=== PATIENT | male | born 1995 | race Hispanic/Latino ===

== ENCOUNTER 2016-05-22 12:37 | Emergency (ER) | payer SELFPAY ==
[2016-05-22] MEDS ORDERED: AMOXicillin 250 MG CAP ONE ×2 (12:49→12:52)
[2016-05-22] MEDS ORDERED: HYDROcodone/Acetaminophen 10/325 mg Tablet ONE (12:49)
--- NOTE | 2016-05-22 13:17 | ERRECORD ---
[facility] EMERGENCY RECORD HPI TOOTHACHE (12:48 WMEI) CHIEF COMPLAINT: Patient presents for evaluation of toothache, Patient presents for evaluation of jaw swelling. HISTORIAN: History provided by patient. LOCATION: Symptoms are localized, most severe to r upper molar. QUALITY: Pain is dull in nature, described as aching. TIME COURSE: Gradual onset of symptoms, 2, days priror to arrival. ASSOCIATED WITH: Associated with chills, Associated with facial pain, Associated with facial swelling, for 2 days, constant, No associated fever. EXACERBATED BY: Patient's condition exacerbated by movement. RELIEVED BY: Patient's condition relieved by nothing. ROS (12:49 WMEI) CONSTITUTIONAL: Historian reports chills, denies fever, reports malaise. EYES: Historian denies eye pain, denies eye discharge. ENT: Historian denies otalgia, denies rhinorrhea, denies sinus pain. CARDIOVASCULAR: Historian denies chest pain, no radiation. RESPIRATORY: Historian denies cough, denies shortness of breath. GI: Historian denies nausea, denies vomiting. MUSCULOSKELETAL: Historian denies arthralgias, denies joint stiffness. SKIN: Historian denies skin changes, denies skin lesions. NEUROLOGIC: Historian denies focal weakness, denies headache, denies mental status changes. PSYCHIATRIC: Historian denies alcohol abuse, denies anxiety, denies depression, reports drug abuse, reports marijuana abuse. PAST MEDICAL HISTORY (12:44 KMOR) MEDICAL HISTORY: No past medical history. MALE SURGICAL HISTORY: Patient has no surgical history. PSYCHIATRIC HISTORY: No previous psychiatric history, no previous inpatient psychiatric admissions, no previous emergency department psychiatric evaluations. SOCIAL HISTORY: Patient denies alcohol use, Patient currently uses drugs, abuses marijuana, Patient currently uses tobacco, smokes cigarettes, 4-5 cigs. KNOWN ALLERGIES NKDA (Unconfirmed) No Known Drug Allergies CURRENT MEDICATIONS (12:46 KMOR) None &a-1R&a+25V*p+0X*k2183M*c202B*c15G*c2P*p-0X&a-25V&a+1R Name: WillamLucas Stefan : 1995 M21 MedRec: [id number] AcctNum: [id number] Prepared: Zoila May 23, 2016 06:09 by Interface Page 1 of 3 pMD [facility] EMERGENCY RECORD VITAL SIGNS (12:41 KMOR) VITAL SIGNS: BP: 158/118, Pulse: 80, Resp: 16, Temp: 97.4 (Oral), Pain: 10, O2 sat: 98 on Room Air, Time: 05/22/2016 12:41. PHYSICAL EXAM (12:50 WMEI) CONSTITUTIONAL: Vital signs reviewed, Patient appears non toxic, Patient alert and oriented to person, place and time. HEAD: Head exam included findings of head atraumatic, normocephalic. EYES: Conjunctiva normal, Sclera normal. ENT: Ear exam normal, Nose exam normal, Pharynx exam normal, Teeth with, dental caries, cavitous tender r 1st molar swelling r side of face no obvious gum line abscess. NECK: Neck exam included findings of normal range of motion. RESPIRATORY CHEST: Breath sounds clear, Chest exam included findings of chest movement symmetrical. ABDOMEN MALE: Abdominal exam included findings of abdomen nontender. UPPER EXTREMITY: Upper extremity exam included findings of inspection normal, Range of motion normal, Motor strength normal. LOWER EXTREMITY: Lower extremity exam included findings of inspection normal, Range of motion normal, Motor strength normal. NEURO: Fitz coma scale 15, Neuro exam findings include patient oriented to person, place and time, Speech normal, Gait normal. SKIN: Skin exam included findings of skin warm, dry, and normal in color. LYMPHATIC: Lymphatic exam normal. PSYCHIATRIC: Psychiatric exam included findings of patient oriented to person place and time, Normal affect, Judgment normal, Insight normal. MEDICATION ADMINISTRATION SUMMARY Drug Name: amoxicillin, Dose Ordered: 1000 mg, Route: Oral, Status: Given, Time: 12:53 05/22/2016, Drug Name: [place], Dose Ordered: 10 mg, Route: Oral, Status: Given, Time: 12:53 05/22/2016, Detailed record available in Medication Service section. PROBLEM LIST No recorded problems DIAGNOSIS (12:52 WMEI) FINAL: PRIMARY: dental pain. PRESCRIPTION acetaminophen-codeine: TABLET : 300 mg-30 mg : ORAL : Quantity: 1-2 Unit: tab(s) Route: ORAL Schedule: every 4 hours prn Dispense: 20 Unit: tab(s) May substitute. Refills: No Refills . (12:53 WMEI) &a-1R&a+25V*p+0X*n8988A*c202B*c15G*c2P*p-0X&a-25V&a+1R Name: WillamLucas : 1995 M21 MedRec: [id number] AcctNum: [id number] Prepared: Zoila May 23, 2016 06:09 by Interface Page 2 of 3 pMD [facility] EMERGENCY RECORD NOTES: No refills. (12:53 WMEI) PC Pen V K: TABLET : 500 mg : ORAL : Quantity: 1 Unit: tab(s) Route: ORAL Schedule: 4 times a day Dispense: 28 Unit: tab(s) May substitute. Refills: No Refills . (12:53 WMEI) NOTES: ^s=No refills No refills. (12:53 WMEI) Tamiflu: CAPSULE : 75 mg : ORAL : Quantity: 1 Unit: cap(s) Route: ORAL Schedule: 2 times a day (before meals) Dispense: 10 Unit: tab(s) May substitute. Refills: No Refills . (12:56 WMEI) NOTES: No refills. (12:56 WMEI) Tessalon: CAPSULE : 200 mg : ORAL : Quantity: 1 Unit: tab(s) Route: ORAL Schedule: every 8 hours PRN Dispense: 21 Unit: tab(s) May substitute. Refills: No Refills . (12:56 WMEI) NOTES: ^s=No refills No refills. (12:56 WMEI) DISPOSITION PATIENT: Disposition Type: Discharge, Disposition: *Discharge Home. (12:52 WMEI) Patient left the department. (13:00 KMOR) [place]: KMOR=ROB Deras, Char WMEI=DO Jimenez William &a-1R&a+25V*p+0X*n9400W*c202B*c15G*c2P*p-0X&a-25V&a+1R Name: Lucas Quarles : 1995 M21 MedRec: [id number] AcctNum: [id number] Prepared: Zoila May 23, 2016 06:09 by Interface Page 3 of 3 pMD MTDD
--- NOTE | 2016-05-22 13:19 | PICIS ---
[facility] EMERGENCY RECORD TRIAGE (12:41 KMOR) TRIAGE NOTES: Right sided facial swelling x 2 days. (12:41 KMOR) PATIENT: NAME: Lucas Quarles, AGE: 21, GENDER: male, : Tue1995, TIME OF GREET: Sat May 22, 2016 12:37, PREFERRED LANGUAGE: Urdu, ETHNICITY: or , ECODE BILLING MAP: [facility], SSN: [id number], Zip Code: [address], KG WEIGHT: 83.91, PHONE: , , , PERSON ID: [id number], PAYMENT: SJX Self Pay, PCP: NONE. (12:41 KMOR) COMPLAINT: Facial swelling. (12:41 KMOR) ADMISSION: URGENCY: 3 Urgent, ADMISSION SOURCE: Home, TRANSPORT: CAR, BED: ER -03. (12:41 KMOR) ASSESSMENT: Assessment: A&XO4. RR EVEN AND UNLABORED., Symptoms began 2 days ago. (12:44 KMOR) PAIN: Patient complains of pain described as, aching, on a scale 0-10 patient rates pain as 10, Location RIGHT SIDE OF FACE. (12:44 KMOR) IMMUNIZATIONS: Flu vaccine not up to date, Tetanus not up to date. (12:44 KMOR) SIRS SCORING: Heart Rate 55-109 (0), Temp range 96.8-101.1 (0), respiratory rate 12-24 (0), Mental Status altered: no (0), Total SIRS Score 0, Yes, Infection or Suspected Infection. (12:44 KMOR) TRIAGE SCREENING: Patient denies suicidal ideation, Patient denies presence of domestic violence. (12:44 KMOR) TREATMENTS IN PROGRESS: Treatments given Prehospital: 4 advil in the AM. (12:44 KMOR) PROVIDERS: TRIAGE NURSE: Char Deras RN. (12:41 KMOR) PREVIOUS VISIT ALLERGIES: NKDA. (12:41 KMOR) NKDA. (12:44 KMOR) KNOWN ALLERGIES NKDA (Unconfirmed) No Known Drug Allergies CURRENT MEDICATIONS (12:46 KMOR) None VITAL SIGNS (12:41 KMOR) VITAL SIGNS: BP: 158/118, Pulse: 80, Resp: 16, Temp: 97.4 (Oral), Pain: 10, O2 sat: 98 on Room Air, Time: 05/22/2016 12:41. NURSING ASSESSMENT: DENTAL (12:46 KMOR) CONSTITUTIONAL: Patient arrives ambulatory, Gait steady, History obtained from patient, Patient appears, uncomfortable, Patient cooperative, Patient alert, Oriented to person, place and time, Skin warm, Skin dry, Skin normal in color, Mucous membranes pink, Mucous membranes moist, Patient is well-groomed, Patient complains of Right side facial swelling, Right side facial &a-1R&a+25V*p+0X*x4827M*c202B*c15G*c2P*p-0X&a-25V&a+1R Name: Lucas Quarles : 1995 M21 MedRec: [id number] AcctNum: [id number] Prepared: Zoila May 23, 2016 06:15 by Interface Page [address] [facility] EMERGENCY RECORD swelling and dental pain x2 days, broken tooth on right upper back. PAIN: aching pain, to right upper back tooth (teeth), to the right upper jaw, on a scale 0-10 patient rates pain as 10. DENTAL: Teeth abnormal:, broken secondary tooth (teeth), signs of infection to secondary tooth (teeth), no associated malocclusion of jaw, no associated bleeding, Associated with, swelling to the right side of face, no swelling to the eyes, no swelling to the neck, swelling to the right jaw. NOTES: Patient tolerated procedure well. NURSING PROCEDURE: DISCHARGE NOTE (12:59 KMOR) DISCHARGE: Patient discharged to home, ambulating without assistance, family driving, accompanied by //partner, Summary of Care printed/ provided, Transition record given to patient, Discharge instructions given to patient, Simple or moderate discharge teaching performed, by ROB Pardo, Discharge instructions and follow up reviewed with patient. Pt ambulatory to discharge desk., Prescriptions given and instructions on side effects given, Name of prescription(s) given: tylenol 3, pcn, Above person(s) verbalized understanding of discharge instructions and follow-up care, Patient instructed not to drive home. BELONGINGS: Belongings remain with patient, Valuables remain with patient. MEDICATION ADMINISTRATION SUMMARY Drug Name: amoxicillin, Dose Ordered: 1000 mg, Route: Oral, Status: Given, Time: 12:53 05/22/2016, Drug Name: [place], Dose Ordered: 10 mg, Route: Oral, Status: Given, Time: 12:53 05/22/2016, Detailed record available in Medication Service section. MEDICATION SERVICE (12:53 WMEI) amoxicillin: Order: amoxicillin (amoxicillin trihydrate) - Dose: 1000 mg : Oral Schedule: Now Ordered by: Shen Jimenez DO Entered by: Shen Jimenez DO Sat May 22, 2016 12:47 , Acknowledged by: Char Deras RN Sat May 22, 2016 12:48 Documented as given by: Char Deras RN Sat May 22, 2016 12:53 Patient, Medication, Dose, Route and Time verified prior to administration. Amount given: 1000mg, Site: Medication administered P.O., Correct patient, time, route, dose and medication confirmed prior to administration, Patient advised of actions and side-effects prior to administration, Allergies confirmed and medications reviewed prior to administration, Patient in position of comfort, Side rails up, Cart &a-1R&a+25V*p+0X*h1164A*c202B*c15G*c2P*p-0X&a-25V&a+1R Name: Lucas Quarles : 1995 M21 MedRec: [id number] AcctNum: [id number] Prepared: Zoila May 23, 2016 06:15 by Interface Page [address] [facility] EMERGENCY RECORD in lowest position, Family at bedside. HPI TOOTHACHE (12:48 WMEI) CHIEF COMPLAINT: Patient presents for evaluation of toothache, Patient presents for evaluation of jaw swelling. HISTORIAN: History provided by patient. LOCATION: Symptoms are localized, most severe to r upper molar. QUALITY: Pain is dull in nature, described as aching. TIME COURSE: Gradual onset of symptoms, 2, days priror to arrival. ASSOCIATED WITH: Associated with chills, Associated with facial pain, Associated with facial swelling, for 2 days, constant, No associated fever. EXACERBATED BY: Patient's condition exacerbated by movement. RELIEVED BY: Patient's condition relieved by nothing. ROS (12:49 WMEI) CONSTITUTIONAL: Historian reports chills, denies fever, reports malaise. EYES: Historian denies eye pain, denies eye discharge. ENT: Historian denies otalgia, denies rhinorrhea, denies sinus pain. CARDIOVASCULAR: Historian denies chest pain, no radiation. RESPIRATORY: Historian denies cough, denies shortness of breath. GI: Historian denies nausea, denies vomiting. MUSCULOSKELETAL: Historian denies arthralgias, denies joint stiffness. SKIN: Historian denies skin changes, denies skin lesions. NEUROLOGIC: Historian denies focal weakness, denies headache, denies mental status changes. PSYCHIATRIC: Historian denies alcohol abuse, denies anxiety, denies depression, reports drug abuse, reports marijuana abuse. PAST MEDICAL HISTORY (12:44 KMOR) MEDICAL HISTORY: No past medical history. MALE SURGICAL HISTORY: Patient has no surgical history. PSYCHIATRIC HISTORY: No previous psychiatric history, no previous inpatient psychiatric admissions, no previous emergency department psychiatric evaluations. SOCIAL HISTORY: Patient denies alcohol use, Patient currently uses drugs, abuses marijuana, Patient currently uses tobacco, smokes cigarettes, 4-5 cigs. PHYSICAL EXAM (12:50 WMEI) CONSTITUTIONAL: Vital signs reviewed, Patient appears non toxic, Patient alert and oriented to person, place and time. HEAD: Head exam included findings of head atraumatic, normocephalic. &a-1R&a+25V*p+0X*i8323Z*c202B*c15G*c2P*p-0X&a-25V&a+1R Name: WillamLucas Stefan : 1995 M21 MedRec: [id number] AcctNum: [id number] Prepared: Zoila May 23, 2016 06:15 by Interface Page [address] [facility] EMERGENCY RECORD EYES: Conjunctiva normal, Sclera normal. ENT: Ear exam normal, Nose exam normal, Pharynx exam normal, Teeth with, dental caries, cavitous tender r 1st molar swelling r side of face no obvious gum line abscess. NECK: Neck exam included findings of normal range of motion. RESPIRATORY CHEST: Breath sounds clear, Chest exam included findings of chest movement symmetrical. ABDOMEN MALE: Abdominal exam included findings of abdomen nontender. UPPER EXTREMITY: Upper extremity exam included findings of inspection normal, Range of motion normal, Motor strength normal. LOWER EXTREMITY: Lower extremity exam included findings of inspection normal, Range of motion normal, Motor strength normal. NEURO: Irwin coma scale 15, Neuro exam findings include patient oriented to person, place and time, Speech normal, Gait normal. SKIN: Skin exam included findings of skin warm, dry, and normal in color. LYMPHATIC: Lymphatic exam normal. PSYCHIATRIC: Psychiatric exam included findings of patient oriented to person place and time, Normal affect, Judgment normal, Insight normal. EVENTS TRANSFER: Triage to Emergency Emergency Room -03. (Sat May 22, 2016 12:41 KMOR) Removed from Emergency Emergency Room -03. (13:00 KMOR) PROBLEM LIST No recorded problems DIAGNOSIS (12:52 WMEI) FINAL: PRIMARY: dental pain. DISPOSITION PATIENT: Disposition Type: Discharge, Disposition: *Discharge Home. (12:52 WMEI) Patient left the department. (13:00 KMOR) INSTRUCTION (12:52 WMEI) DISCHARGE: DENTAL PAIN. SPECIAL: Follow-up with your PCP/DENTIST. PRESCRIPTION acetaminophen-codeine: TABLET : 300 mg-30 mg : ORAL : Quantity: 1-2 Unit: tab(s) Route: ORAL Schedule: every 4 hours prn Dispense: 20 Unit: tab(s) May substitute. Refills: No Refills . (12:53 WMEI) NOTES: No refills. (12:53 WMEI) PC Pen V K: TABLET : 500 mg : ORAL : Quantity: 1 Unit: tab(s) Route: ORAL Schedule: 4 times a day Dispense: 28 Unit: &a-1R&a+25V*p+0X*k1936X*c202B*c15G*c2P*p-0X&a-25V&a+1R Name: Lucas Quarles : 1995 M21 MedRec: [id number] AcctNum: [id number] Prepared: Zoila May 23, 2016 06:15 by Interface Page [address] [facility] EMERGENCY RECORD tab(s) May substitute. Refills: No Refills . (12:53 WMEI) NOTES: ^s=No refills No refills. (12:53 WMEI) Tamiflu: CAPSULE : 75 mg : ORAL : Quantity: 1 Unit: cap(s) Route: ORAL Schedule: 2 times a day (before meals) Dispense: 10 Unit: tab(s) May substitute. Refills: No Refills . (12:56 WMEI) NOTES: No refills. (12:56 WMEI) Tessalon: CAPSULE : 200 mg : ORAL : Quantity: 1 Unit: tab(s) Route: ORAL Schedule: every 8 hours PRN Dispense: 21 Unit: tab(s) May substitute. Refills: No Refills . (12:56 WMEI) NOTES: ^s=No refills No refills. (12:56 WMEI) IMAGING (13:00 KMOR) *DISCHARGE INSTRUCTIONS RECEIPT: Image captured from scanner. *SUPPLY CHARGE SHEET: Image captured from scanner. ADMIN DIGITAL SIGNATURE: ROB Deras Krista. (13:04 KMOR) DO Jimenez William. (Zoila May 23, 2016 06:05 WMEI) [place]: KMOR=ROB Deras Krista WMEI=DO Jimenez William &a-1R&a+25V*p+0X*h6561B*c202B*c15G*c2P*p-0X&a-25V&a+1R Name: Lucas Quarles : 1995 M21 MedRec: [id number] AcctNum: [id number] Prepared: Zoila May 23, 2016 06:15 by Interface Page 5 of 5 pMD MTDD
== END 2016-05-22 12:59 | disposition home or self-care (01) ==
LOC: BURERS 12:37
DX: K08.89 Other specified disorders of teeth and supporting structures (principal); F17.210 Nicotine dependence, cigarettes, uncomplicated
CPT/HCPCS: 99282